=== PATIENT | female | born 1935 | race Caucasian/White ===

== ENCOUNTER 2017-03-15 14:17 | Emergency (ER) | payer MEDICARE, OTHER ==
[~2017-03-15] VITALS: Ht 160 cm; Wt 76.0 kg
[~2017-03-15 14:17] MED LIST: ASPI325T PO; CENTTAB9 PO; FISH100020 PO; LISI10 PO; METO50CR PO; RED600TA PO
[2017-03-15 14:20] VITALS: BP 145/99; PULSE 84; RESP 16; TEMP 98; O2SAT 98
[2017-03-15 14:41] VITALS: BP 147/85; PULSE 75; RESP 18; TEMP 97.9; O2SAT 98
[2017-03-15] MEDS ORDERED: SODIUM CHLOR 0.9% 1000 ML INJ 1,000 ML IV SCH (14:43)
[2017-03-15] MEDS ORDERED: SODIUM CHLORIDE 0.9% FLUSH 10 ML FLUSH IV FLUSH PRN (14:45)
[2017-03-15 14:48] VITALS: O2SAT 99
[2017-03-15] MEDS ORDERED: MORPHINE SULFATE 4 MG/ML INJ IV PUSH ONE (15:00)
[2017-03-15] MEDS ORDERED: ONDANSETRON HCL 4 MG/2 ML VIAL IV PUSH ONE (15:00)
--- NOTE | 2017-03-15 15:00 | PD ---
HPI Chief Complaint: Abdominal Pain Time Seen by Provider: 14:32 Travel History International Travel<30 days: No Contact w/Intl Traveler<30days: No Traveled to known affect area: No History of Present Illness HPI 82-year-old female presents emergency Department with complaint right quadrant and right flank that started yesterday morning. She went to urgent care this morning and was told that she had blood in her urine and urinary tract infection was given a prescription for Bactrim, which she has taken one pill. She was given prescriptions for outpatient imaging and labs and was told she couldn't wait till tomorrow to come to the ER. Patient says the pain has worsened. Denies history of kidney stones. Has history of appendectomy, cholecystectomy and hysterectomy. Reports vomiting once yesterday and once this morning. Denies fevers. Denies dysuria, urinary frequency, urgency. Denies diarrhea, constipation, hematochezia. Denies chest pain or shortness of breath. Pain is constant. No known relieving or aggravating factors. Rates the pain 8/10. Describes it as a pressure. History of hypertension. Primary care provider is Dr. Whitt in [place]. Allergies as listed on the chart. Has no other medical complaints. No other modifying factors or associated signs and symptoms. PFSH Past Medical History Hx Anticoagulant Therapy: Yes (ASPIRIN ) Cancer: No Cardiovascular Problems: Yes ([place], 2 STENTS ) High Cholesterol: Yes Genitourinary: No Hypertension: Yes Immune Disorder: No Musculoskeletal: Yes (RIGHT FOOT BUNIONECTOMY, LOW DISC SURGERY) Neurologic: No Psychiatric: No Reproductive: No Respiratory: No Immunizations Current: Yes Myocardial Infarction: Yes Tetanus Vaccination: Unknown Influenza Vaccination: Yes ?: Not Past Surgical History Body Medical Devices: 2 STINT PLACEMENTS Cardiac Surgery: Yes (2 STENT PLACEMENT 2012) Cholecystectomy: Yes Eye Surgery: Yes (BILATERAL CATARACT REMOVAL) Hysterectomy: Yes Joint Replacement: Yes (BILATERAL KNEE REPLACEMENT, L & R SHOULDER REPLACEMENT) Social History Alcohol Use: No Tobacco Use: No Substance Use: No Allergies-Medications (Allergen,Severity, Reaction): Coded Allergies: Iodinated Contrast- Oral and IV Dye (Verified Allergy, Intermediate, Hypertension, 03/15/17) aspirin (Verified Allergy, Intermediate, VOMITING, 03/15/17) butalbital (Verified Allergy, Intermediate, VOMITING, 03/15/17) caffeine (Verified Allergy, Intermediate, VOMITING, 03/15/17) codeine (Verified Allergy, Intermediate, Headache, 03/15/17) diazepam (Verified Allergy, Intermediate, Nausea/Vomiting, 03/15/17) hydrochlorothiazide (Verified Allergy, Intermediate, 03/15/17) meloxicam (Verified Allergy, Intermediate, Dizziness, 03/15/17) oxycodone (Verified Allergy, Mild, 03/15/17) Reported Meds & Prescriptions Reported Meds & Active Scripts Active [place] (Hydrocodone-Acetaminophen) 5 Mg-325 Mg Tab 1 Tab PO Q6H PRN Prinivil 10 mg (Lisinopril) 10 Mg Tab 10 Mg PO DAILY 30 Days Reported Fish Oil ([place]-3 Fatty Acids) 1,000 Mg Cap 1,000 Mg PO Red Yeast Rice (Red Yeast Rice Extract) 600 Mg Tab 600 Mg PO Centrum (Multivitamins) Tab 1 Tab PO DAILY Aspirin 325 mg (Aspirin) 325 Mg Tab 325 Mg PO DAILY Metoprolol Succinate ER 50 mg (Metoprolol Succinate) 50 Mg Tab 1 Tab PO DAILY Review of Systems Except as stated in HPI: all other systems reviewed are Neg Physical Exam Narrative GENERAL: Well-nourished, well-developed female patient, in no acute distress; afebrile, nontoxic-appearing SKIN: Warm and dry. No rash. HEAD: Atraumatic. Normocephalic. EYES: Pupils equal and round. No scleral icterus. No injection or drainage. ENT: Mucosa pink and moist. NECK: Trachea midline. CARDIOVASCULAR: Regular rate and rhythm. No murmur appreciated. RESPIRATORY: No accessory muscle use. Clear to auscultation. Breath sounds equal bilaterally. GASTROINTESTINAL: Abdomen soft, tenderness elicited to the right quadrant with deep palpation, nondistended. Hepatic and splenic margins not palpable. Bowel sounds are active 4 quadrants. Bladder nontender and nondistended. MUSCULOSKELETAL: No obvious deformities. No clubbing. No cyanosis. No edema. BACK: Right CVA tenderness NEUROLOGICAL: Awake and alert. Oriented 3. No obvious cranial nerve deficits. Motor grossly within normal limits. Normal speech. Moves all extremities. 5/5 strength to all extremities. PSYCHIATRIC: Appropriate mood and affect; insight and judgment normal. Data Data Last Documented VS Vital Signs Date Time Temp Pulse Resp B/P (MAP) Pulse Ox O2 Delivery O2 Flow Rate FiO2 03/15/17 17:36 03/15/17 15:23 18 03/15/17 14:48 99 Room Air 03/15/17 14:41 97.9 75 Orders Orders Complete Blood Count With Diff (03/15/17 14:43) Comprehensive Metabolic Panel (03/15/17 14:43) Lipase (03/15/17 14:43) Urinalysis - C+S If Indicated (03/15/17 14:43) Ct Abd/Pel W/O Iv Contrast (03/15/17 14:43) Iv Access Insert/Monitor (03/15/17 14:43) Ecg Monitoring (03/15/17 14:43) Oximetry (03/15/17 14:43) Sodium Chlor 0.9% 1000 Ml Inj (Ns 1000 M (03/15/17 14:43) Sodium Chloride 0.9% Flush (Ns Flush) (03/15/17 14:45) Morphine Inj (Morphine Inj) (03/15/17 15:00) Ondansetron Inj (Zofran Inj) (03/15/17 15:00) Urine Culture (03/15/17 15:15) Ceftriaxone Inj (Rocephin Inj) (03/15/17 16:30) Ed Discharge Order (03/15/17 16:36) Labs Laboratory Tests Test 03/15/17 14:55 03/15/17 15:15 White Blood Count 18.0 TH/MM3 Red Blood Count 5.14 MIL/MM3 Hemoglobin 15.0 GM/DL Hematocrit 44.9 % Mean Corpuscular Volume 87.3 FL Mean Corpuscular Hemoglobin 29.2 PG Mean Corpuscular Hemoglobin Concent 33.5 % Red Cell Distribution Width 14.2 % Platelet Count 241 TH/MM3 Mean Platelet Volume 8.3 FL Neutrophils (%) (Auto) 80.5 % Lymphocytes (%) (Auto) 9.0 % Monocytes (%) (Auto) 9.8 % Eosinophils (%) (Auto) 0.4 % Basophils (%) (Auto) 0.3 % Neutrophils # (Auto) 14.5 TH/MM3 Lymphocytes # (Auto) 1.6 TH/MM3 Monocytes # (Auto) 1.8 TH/MM3 Eosinophils # (Auto) 0.1 TH/MM3 Basophils # (Auto) 0.1 TH/MM3 CBC Comment DIFF FINAL Differential Comment Blood Urea Nitrogen 13 MG/DL Creatinine 0.91 MG/DL Random Glucose 110 MG/DL Total Protein 7.6 GM/DL Albumin 3.5 GM/DL Calcium Level 9.4 MG/DL Alkaline Phosphatase 93 U/L Aspartate Amino Transf (AST/SGOT) 25 U/L Alanine Aminotransferase (ALT/SGPT) 35 U/L Total Bilirubin 1.4 MG/DL Sodium Level 136 MEQ/L Potassium Level 4.1 MEQ/L Chloride Level 102 MEQ/L Carbon Dioxide Level 24.8 MEQ/L Anion Gap 9 MEQ/L Estimat Glomerular Filtration Rate 59 ML/MIN Lipase 512 U/L Urine Color YELLOW Urine Turbidity CLEAR Urine pH 7.0 Urine Specific [place] 1.013 Urine Protein NEG mg/dL Urine Glucose (UA) NEG mg/dL Urine Ketones TRACE mg/dL Urine Occult Blood SMALL Urine Nitrite NEG Urine Bilirubin NEG Urine Urobilinogen LESS THAN 2.0 MG/DL Urine Leukocyte Esterase LARGE Urine RBC 4 /hpf Urine WBC 13 /hpf Urine Squamous Epithelial Cells <1 /hpf Urine Bacteria FEW /hpf Urine Mucus FEW /lpf Microscopic Urinalysis Comment CULTURE INDICATED MDM Medical Decision Making Medical Screen Exam Complete: Yes Emergency Medical Condition: Yes Medical Record Reviewed: Yes Differential Diagnosis Diverticulitis, cholelithiasis, pyelonephritis Narrative Course 82-year-old female with right flank pain. Seen in urgent care this morning and started a prescription of Bactrim for UTI. IV site obtained. CBC, CMP, lipase , urinalysis, CT abdomen/pelvis ordered. 1611: WBC 18.0. Lipase 512. Urinalysis was signs of infection; positive leukocyte esterase and urine WBC 14. CT abdomen/pelvis concludes: Abdomen/Pelvis CT 03/15/17 1443 Signed Impressions: Service Date/Time: Wednesday, March 15, 2017 15:22 - CONCLUSION: 1. Mild enlargement and inflammation around the pancreatic head suggesting a mild acute pancreatitis. Suggest correlating with the history and appropriate laboratory values. 2. There is a 2.6 cm simple appearing right ovarian cystic lesion. Since the patient is postmenopausal suggest followup ultrasound in approximately 6- 12 months to confirm stability. 3. Moderate to severe atherosclerotic disease. Michael Ba MD CT findings were discussed with the patient and a copy of the report was given to the patient; I discussed follow-up of right ovarian cystic lesion in 6-12 months. She does recall she does have history of pancreatitis. The patient was given the option to the admitted for pain control and pancreatitis and she would like to be discharged home. She denies pain at this time. Suspecting pyelonephritis. Patient given 1 g of Rocephin IV prior to discharge. Patient has a prescription for Bactrim and I instructed the patient to continue Bactrim as prescribed. Discussed reasons to return to the emergency department in great detail. Plan of care and discharge was discussed with Dr. Green, my attending physician, and he is in agreement. Instructed patient to follow up with primary care provider. Patient verbalizes understanding and agreement with treatment plan. Patient is medically cleared and stable for discharge. Discussed reasons to return to the emergency department. Patient agrees with treatment plan. The patients vital signs are stable and the patient is stable for outpatient follow-up and treatment. Patient discharged home, stable and in no acute distress. Diagnosis Primary Impression: Pyelonephritis Additional Impression: Pancreatitis Qualified Codes: K86.1 - Other chronic pancreatitis Referrals: Physical Chemist Primary Care Physician Patient Instructions: General Instructions, Pancreatitis (ED), Urinary Tract Infection in Women (ED) Additional Instructions: Continue Bactrim as prescribed Pain medication as prescribed and as needed for pain Increase fluid intake Follow-up in 6-12 months for ultrasound of ovarian cystic lesion as indicated by CT scan results Follow-up with primary care provider Return to the emergency department immediately with worsening of symptoms, particularly with symptoms as discussed Med/Other Pt SpecificInfo: Prescription(s) given Scripts Hydrocodone-Acetaminophen ([place]) 5 Mg-325 Mg Tab 1 TAB PO Q6H Y for PAIN, #8 TAB 0 Refills Prov: Nicolasa Muñoz 03/15/17 Disposition: 01 DISCHARGE HOME Condition: Stable Nicolasa Muñoz Mar 15, 2017 15:00
[2017-03-15 15:23] VITALS: RESP 18
[2017-03-15 15:42] LABS: AUTOMATED NEUTROPHIL # 14.5 TH/MM3 (1.8-7.7); BASOPHIL # 0.1 TH/MM3 (0-0.2); BASOPHIL % 0.3 % (0.0-2.0); EOSINOPHIL # 0.1 TH/MM3 (0-0.4); EOSINOPHIL % 0.4 % (0.0-4.0); HEMATOCRIT 44.9 % (35.0-46.0); HEMO FLAGS DIFF FINAL; LYMPHOCYTE # 1.6 TH/MM3 (1.0-4.8); MEAN CELL VOLUME 87.3 FL (80.0-100.0); MEAN CORPUSCULAR HEMOGLOBIN 29.2 PG (27.0-34.0); MEAN CORPUSCULAR HGB CONC 33.5 % (32.0-36.0); MONO % 9.8 % (0.0-8.0); NEUT % 80.5 % (16.0-70.0); PLATELET COUNT 241 TH/MM3 (150-450); RED BLOOD COUNT 5.14 MIL/MM3 (4.00-5.30); RED CELL DISTRIBUTION WIDTH 14.2 % (11.6-17.2)
[2017-03-15 15:47] LABS: ALT (GPT) 35 U/L (10-53); ANION GAP 9 MEQ/L (5-15); AST (GOT) 25 U/L (15-37); BICARBONATE 24.8 MEQ/L (21.0-32.0); BLOOD UREA NITROGEN 13 MG/DL (7-18); CHLORIDE 102 MEQ/L (98-107); GLOMERULAR FILTRATION RATE 59 ML/MIN (>89); SODIUM (NA) 136 MEQ/L (136-145)
[2017-03-15 15:49] LABS: POTASSIUM 4.1 MEQ/L (3.5-5.1)
[2017-03-15 15:50] LABS: ALKALINE PHOSPHATASE 93 U/L (45-117); TOTAL BILIRUBIN ADULT 1.4 MG/DL (0.2-1.0)
[2017-03-15 15:51] LABS: BACTERIA, URINE FEW /hpf; BLOOD, URINE SMALL (NEG); GLUCOSE,URINE NEG (NEG); KETONE, URINE TRACE mg/dL (NEG); MUCUS URINE FEW /lpf (OCC); NITRITE,URINE NEG (NEG); SQUAMOUS EPITHELIAL CELL URINE <1 /hpf (0-5); URINE COLOR YELLOW (YELLW/STRAW)
[2017-03-15 15:52] LABS: COMMENT (UR) CULTURE INDICATED; CULTURE IF INDICATED CULTURE INDICATED
--- NOTE | 2017-03-15 16:05 | RADRPT ---
EXAM DATE/TIME: 03/15/2017 15:22 [facility] COMPARISON: No previous studies available for comparison. INDICATIONS : Right flank pain today. ORAL CONTRAST: No oral contrast ingested. RADIATION DOSE: 8.79 CTDIvol (mGy) MEDICAL HISTORY : Cardiovascular disease. Hypertension. SURGICAL HISTORY : Cholecystectomy. Hysterectomy. ENCOUNTER: Initial ACUITY: 1 day PAIN SCALE: 10/10 LOCATION: Right flank TECHNIQUE: Volumetric scanning of the abdomen and pelvis was performed. Using automated exposure control and ad justment of the mA and/or kV according to patient size, radiation dose was kept as low as reasonably achievable to obtain optimal diagnostic quality images. DICOM format image data is available electro nically for review and comparison. FINDINGS: LOWER LUNGS: The visualized lower lungs are clear. LIVER: Homogeneous density without lesion. There is no dilation of the biliary tree. The gallbladder is ab sent. SPLEEN: Normal size without lesion. PANCREAS: The pancreatic head is mildly enlarged with the surrounding inflammation in the peripancreatic fat. B kory and tail are within normal limits. There is no duct dilatation or solid mass is seen on this nonc ontrast exam. KIDNEYS: Normal in size and shape. There is no mass, stone, or hydronephrosis. ADRENAL GLANDS: Within normal limits. VASCULAR: There is no aortic aneurysm. There is moderate to severe atherosclerotic disease. BOWEL/MESENTERY: The stomach, small bowel, and colon demonstrate no acute abnormality. There is no free intraperitone al air or fluid. There is sigmoid diverticulosis. ABDOMINAL WALL: Postsurgical changes are present on the inferior aspect of the anterior abdominal wall. RETROPERITONEUM: There is no lymphadenopathy. BLADDER: No wall thickening or mass. REPRODUCTIVE: Uterus is absent. Left ovary is within normal limits. The right ovary contains a 2.6 cm a simple appe aring cystic lesion. INGUINAL: There is no lymphadenopathy or hernia. MUSCULOSKELETAL: There are degenerative changes of the lumbar spine. CONCLUSION: 1. Mild enlargement and inflammation around the pancreatic head suggesting a mild acute pancreatitis. Suggest correlating with the history and appropriate laboratory values. 2. There is a 2.6 cm simple appearing right ovarian cystic lesion. Since the patient is postmenopausa l suggest followup ultrasound in approximately 6-12 months to confirm stability. 3. Moderate to severe atherosclerotic disease. Michael Ba MD on March 15, 2017 at 15:58 Board Certified Radiologist. This report was verified electronically.
[2017-03-15] MEDS ORDERED: cefTRIAXone INJ 1,000 MG in SODIUM CHLORIDE 0.9% INJ 100 ML IV ONE (16:30)
[2017-03-15] MEDS ORDERED: NORC5TAB PO (16:33)
== END 2017-03-15 17:37 | disposition home or self-care (01) ==
LOC: NEPC 14:17
DX: N12 Tubulo-interstitial nephritis, not specified as acute or chronic (principal); K86.1 Other chronic pancreatitis; B95.2 Enterococcus as the cause of diseases classified elsewhere; I10 Essential (primary) hypertension
CPT/HCPCS: 74176; 80053; 81001; 83690; 85025; 87077; 87086; 87186; 96361; 96374; 96375; 99285; J0696; J2270; J2405; J7030